=== PATIENT | female | born 1965 | race Caucasian/White ===

== ENCOUNTER 2020-04-28 20:01 | Observation (INO) | payer OTHER ==
--- NOTE | 2020-04-28 20:20 | ED ---
General Adult HPI - General Chief complaint: Weakness Stated complaint: weakness Time Seen by Provider: 04/28/20 20:11 Source: patient, EMS Mode of arrival: EMS Limitations: no limitations - History of Present Illness Initial comments: Dictation was produced using [employer] dictation software. please excuse any grammatical, word or spelling errors. This patient was cared for during a federal and state declared state of emergency secondary to Covid 19 Chief Complaint: 64-year-old female presents with abnormal skin color History of Present Illness: 64-year-old female she has past medical history of CVA. She has chronic aphasia and right-sided weakness from previous stroke. Patient is an unreliable historian. She is at baseline confused and does not have coherent speech patterns. Patient is brought in by EMS according to nurse worsening of report she has had an episode of migraine to the skin and difficulty sitting up. Unable to obtain review of systems secondary to mental status. PHYSICAL EXAM: General Impression: Alert and oriented x2, not in acute distress HEENT: Normocephalic atraumatic, extra-ocular movements intact, pupils equal and reactive to light bilaterally, mucous membranes moist. Cardiovascular: Heart regular rate and rhythm Chest: Able to complete full sentences, no retractions, no tachypnea Abdomen: abdomen soft, non-tender, non-distended, no organomegaly Musculoskeletal: Pulses present and equal in all extremities, no peripheral edema Motor: no focal deficits noted Neurological: CN II-XII grossly intact, incoherent speech, aphasia, confused, no dysarthria, weakness of the right upper or lower extremity Skin: Intact with no visualized rashes Psych: Normal affect and mood ED course: 54-year-old presents with episode of graying of the skin and inability to sit up. Patient at bedside is sitting up she. She does not have any martin skin. Blood pressure is 93/57, rest of vital signs within acceptable limits. Family is currently in the waiting room. We will get more history from the family. Family member at bedside reports that patient had an episode where she did appear martin. Family member tried to check the heart rate and she says it was 20. The time she seemed to be very lethargic. Family reports that he was short lived. He does appear to be at baseline currently. There is concern about patient's medical condition. Laboratory evaluation was obtained. CBC, coag panel, metabolic panel is unremarkable. Cardiac enzymes negative. Computed tomography scan the brain looks baseline. Chest x-ray is nonacute. Disposition options were discussed with family. The would prefer the patient be admitted for medical monitoring. This is a reasonable request considering that patient's daughter is a nurse and observe some being significantly abnormal with low heart rates. Patient be admitted for medical monitoring. Discussed patient case with Dr. Blanc who is willing to accept patients care. EKG interpretation: Ventricular rate 65, normal sinus rhythm, CA interval 140, QRS 74, QTC 426. No CA prolongation, no QTC prolongation, no ST or T-wave changes noted. . Overall, this EKG is unremarkable - Related Data Home Medications Medication Instructions Recorded Confirmed Atorvastatin [Lipitor] 40 mg PO HS 04/28/20 04/28/20 Citalopram Hydrobromide [CeleXA] 20 mg PO DAILY 04/28/20 04/28/20 Clopidogrel [Plavix] 75 mg PO DAILY 04/28/20 04/28/20 Lisinopril [Prinivil] 10 mg PO DAILY 04/28/20 04/28/20 Loratadine [Claritin] 10 mg PO DAILY 04/28/20 04/28/20 Allergies Allergy/AdvReac Type Severity Reaction Status Date / Time Unable to Assess Allergy Verified 04/28/20 20:10 Review of Systems ROS Statement: Those systems with pertinent positive or pertinent negative responses have been documented in the HPI. ROS Other: All systems not noted in ROS Statement are negative. Past Medical History Additional Past Medical History / Comment(s): stroke History of Any Multi-Drug Resistant Organisms: Unobtainable Past Surgical History: Unable to Obtain Past Psychological History: Unable to Obtain Smoking Status: Unknown if ever smoked Past Alcohol Use History: Unable to Obtain Past Drug Use History: Unable to Obtain General Exam Limitations: no limitations Course Vital Signs 04/28/20 04/28/20 04/28/20 20:02 20:56 21:52 Temperature 98.2 F Pulse Rate 78 61 52 L Respiratory 18 19 18 Rate Blood Pressure 93/57 116/72 111/65 O2 Sat by Pulse 98 98 98 Oximetry Medical Decision Making - Lab Data Result diagrams: 04/28/20 20:29 04/28/20 20:29 Lab Results 04/28/20 04/28/20 04/28/20 Range/Units 20:29 20:29 20:29 WBC 8.7 (3.8-10.6) k/uL RBC 4.28 (3.80-5.40) m/uL Hgb 12.5 (11.4-16.0) gm/dL Hct 37.6 (34.0-46.0) % MCV 87.8 (80.0-100.0) fL MCH 29.1 (25.0-35.0) pg MCHC 33.2 (31.0-37.0) g/dL RDW 12.2 (11.5-15.5) % Plt Count 213 (150-450) k/uL Neutrophils % 62 % Lymphocytes % 30 % Monocytes % 5 % Eosinophils % 1 % Basophils % 0 % Neutrophils # 5.4 (1.3-7.7) k/uL Lymphocytes # 2.6 (1.0-4.8) k/uL Monocytes # 0.5 (0-1.0) k/uL Eosinophils # 0.1 (0-0.7) k/uL Basophils # 0.0 (0-0.2) k/uL PT 9.8 (9.0-12.0) sec INR 0.9 (<1.2) APTT 22.1 (22.0-30.0) sec Sodium 139 (137-145) mmol/L Potassium 4.7 (3.5-5.1) mmol/L Chloride 103 (98-107) mmol/L Carbon Dioxide 28 (22-30) mmol/L Anion Gap 8 mmol/L BUN 14 (7-17) mg/dL Creatinine 1.09 H (0.52-1.04) mg/dL Est GFR (CKD-EPI)AfAm 66 (>60 ml/min/1.73 sqM) Est GFR (CKD-EPI)NonAf 57 (>60 ml/min/1.73 sqM) Glucose 107 H (74-99) mg/dL Plasma Lactic Acid Ky (0.7-2.0) mmol/L Calcium 9.0 (8.4-10.2) mg/dL Magnesium 2.0 (1.6-2.3) mg/dL Total Bilirubin 0.5 (0.2-1.3) mg/dL AST 29 (14-36) U/L ALT 24 (4-34) U/L Alkaline Phosphatase 97 (38-126) U/L Troponin I (0.000-0.034) ng/mL Total Protein 6.3 (6.3-8.2) g/dL Albumin 4.1 (3.5-5.0) g/dL 04/28/20 04/28/20 Range/Units 20:29 20:29 WBC (3.8-10.6) k/uL RBC (3.80-5.40) m/uL Hgb (11.4-16.0) gm/dL Hct (34.0-46.0) % MCV (80.0-100.0) fL MCH (25.0-35.0) pg MCHC (31.0-37.0) g/dL RDW (11.5-15.5) % Plt Count (150-450) k/uL Neutrophils % % Lymphocytes % % Monocytes % % Eosinophils % % Basophils % % Neutrophils # (1.3-7.7) k/uL Lymphocytes # (1.0-4.8) k/uL Monocytes # (0-1.0) k/uL Eosinophils # (0-0.7) k/uL Basophils # (0-0.2) k/uL PT (9.0-12.0) sec INR (<1.2) APTT (22.0-30.0) sec Sodium (137-145) mmol/L Potassium (3.5-5.1) mmol/L Chloride (98-107) mmol/L Carbon Dioxide (22-30) mmol/L Anion Gap mmol/L BUN (7-17) mg/dL Creatinine (0.52-1.04) mg/dL Est GFR (CKD-EPI)AfAm (>60 ml/min/1.73 sqM) Est GFR (CKD-EPI)NonAf (>60 ml/min/1.73 sqM) Glucose (74-99) mg/dL Plasma Lactic Acid Ky 1.8 (0.7-2.0) mmol/L Calcium (8.4-10.2) mg/dL Magnesium (1.6-2.3) mg/dL Total Bilirubin (0.2-1.3) mg/dL AST (14-36) U/L ALT (4-34) U/L Alkaline Phosphatase (38-126) U/L Troponin I <0.012 (0.000-0.034) ng/mL Total Protein (6.3-8.2) g/dL Albumin (3.5-5.0) g/dL Disposition Clinical Impression: Syncope Disposition: ADMITTED IP TO THIS HOSP Condition: Fair Referrals: None,Stated [REFERRING] - 1-2 days Decision Time: 22:19
--- NOTE | 2020-04-28 20:35 | XR ---
EXAMINATION TYPE: XR chest 1V portable DATE OF EXAM: 04/28/2020 COMPARISON: NONE HISTORY: Weakness. TECHNIQUE: Single AP portable frontal upright view of the chest is obtained. FINDINGS: There is some mild chronic parenchymal change bilaterally without suspicious focal air spa ce opacity, pleural effusion, or pneumothorax seen. The cardiac silhouette size is within normal kirk its. Multilevel spurring in the thoracic spine is present. IMPRESSION: No acute cardiopulmonary process.
[2020-04-28 20:48] LABS: Basophils % (A) 0 %; Eosinophils # (A) 0.1 k/uL (0-0.7); Eosinophils % (A) 1 %; HCT 37.6 % (34.0-46.0); HGB 12.5 gm/dL (11.4-16.0); Lymphocytes # (A) 2.6 k/uL (1.0-4.8); Lymphocytes % (A) 30 %; MCH 29.1 pg (25.0-35.0); MCHC 33.2 g/dL (31.0-37.0); MCV 87.8 fL (80.0-100.0); Mean Platelet Volume 7.4; Monocytes # (A) 0.5 k/uL (0-1.0); Monocytes % (A) 5 %; Neutrophils # (A) 5.4 k/uL (1.3-7.7); Neutrophils % (A) 62 %; Platelet Count 213 k/uL (150-450); RBC 4.28 m/uL (3.80-5.40); RDW 12.2 % (11.5-15.5); WBC 8.7 k/uL (3.8-10.6)
--- NOTE | 2020-04-28 20:51 | CT ---
EXAMINATION TYPE: CT brain wo con DATE OF EXAM: 04/28/2020 HISTORY: Altered mental status. CT DLP: 1068.4 mGycm. Automated Exposure Control for Dose Reduction was Utilized. TECHNIQUE: CT scan of the head is performed without contrast. COMPARISON: None. FINDINGS: There is no acute intracranial hemorrhage . There is old infarct left MCA distribution in volving frontal and parietal lobes with ex vacuo dilatation left ventricular system and left-sided vo lume loss, subtle 3 mm left-sided shift is present. Bilateral basal ganglia calcifications. The glob es are intact and the visualized sinuses are clear. IMPRESSION: No acute intracranial hemorrhage. Old significant left-sided infarct in the MCA distribu tion with left-sided volume loss and mediastinal shift.
[2020-04-28 21:01] LABS: Albumin 4.1 g/dL (3.5-5.0); Potassium 4.7 mmol/L (3.5-5.1); Total Bilirubin 0.5 mg/dL (0.2-1.3); Total Protein 6.3 g/dL (6.3-8.2)
[2020-04-28 21:29] LABS: INR 0.9 (<1.2); Partial Thromboplastin Time 22.1 sec (22.0-30.0); Prothrombin Time 9.8 sec (9.0-12.0)
[2020-04-28] MEDS ORDERED: NALOXONE 0.4 MG/ML 1 ML VIAL IV PRN (22:19)
[2020-04-28 22:25] LABS: Appearance,Urine Clear (Clear); Bilirubin,Urine Negative (Negative); Blood,Urine Negative (Negative); Color,Urine Yellow; Glucose,Urine (UA) Negative (Negative); Ketones,Urine Negative (Negative); Leukocyte Esterase,Urine Negative (Negative); Nitrite,Urine Negative (Negative); PH, Urine 5.5 (5.0-8.0); Protein,Urine Negative (Negative); Specific Gravity,Urine 1.019 (1.001-1.035)
[2020-04-28] MEDS: SODIUM CHLORIDE 0.9% 1,000 ML IV SCH (22:25)
[2020-04-28] MEDS ORDERED: ACETAMINOPHEN TAB 500 MG TAB PO STA (22:44)
[2020-04-28] MEDS ORDERED: MELATONIN 5 MG TABLET PO PRN (23:44)
[2020-04-28] MEDS ORDERED: ACETAMINOPHEN TAB 325 MG TAB PO PRN (23:44)
[2020-04-28] MEDS: ATORVASTATIN 40 MG TAB PO SCH (23:58)
--- NOTE | 2020-04-29 09:56 | P.HPIM ---
History of Present Illness 64-year-old female she has past medical history of CVA. She has chronic aphasia and right-sided weakness from previous stroke. Patient is an unreliable historian. She is at baseline confused and does not have coherent speech patterns. patient the pulse was found to be low and patient is found to be hypotensive and patient was having patient felt lightheaded because of which patient was brought to ER. Patient here patient is sinus rhythm mild sinus bradycardia with heart rate in 50s. Patient is not on beta ruthy. Her TSH was high T4 is pending. Patient blood pressures in 90s patienthe is on lisinopril Review of Systems REVIEW OF SYSTEMS: CONSTITUTIONAL: No fever, no malaise, no fatigue. HEENT: No recent visual problems or hearing problems. Denied any sore throat. CARDIOVASCULAR: No chest pain, orthopnea, PND, no palpitations. PULMONARY: No shortness of breath, no cough, no hemoptysis. GASTROINTESTINAL: No diarrhea, no nausea, no vomiting, no abdominal pain. NEUROLOGICAL: No headaches, no weakness, no numbness. HEMATOLOGICAL: Denies any bleeding or petechiae. GENITOURINARY: Denies any burning micturition, frequency, or urgency. MUSCULOSKELETAL/RHEUMATOLOGICAL: Denies any joint pain, swelling, or any muscle pain. ENDOCRINE: Denies any polyuria or polydipsia. The rest of the 14-point review of systems is negative. Past Medical History Past Medical History: CVA/TIA, Hyperlipidemia, Hypertension Additional Past Medical History / Comment(s): stroke History of Any Multi-Drug Resistant Organisms: None Reported Past Surgical History: Section Past Anesthesia/Blood Transfusion Reactions: No Reported Reaction Past Psychological History: Depression Smoking Status: Former smoker Past Alcohol Use History: None Reported Past Drug Use History: Marijuana - Past Family History Mother History Unknown: Yes Father History Unknown: Yes Medications and Allergies Home Medications Medication Instructions Recorded Confirmed Type Atorvastatin [Lipitor] 40 mg PO HS 04/28/20 04/28/20 History Citalopram Hydrobromide [CeleXA] 20 mg PO DAILY 04/28/20 04/28/20 History Clopidogrel [Plavix] 75 mg PO DAILY 04/28/20 04/28/20 History Loratadine [Claritin] 10 mg PO DAILY 04/28/20 04/28/20 History Allergies Allergy/AdvReac Type Severity Reaction Status Date / Time No Known Allergies Allergy Verified 04/29/20 03:11 Physical Exam Vitals: Vital Signs Temp Pulse Pulse Resp BP BP Pulse Ox 04/29/20 08:00 98 F 54 L 18 107/71 98 04/29/20 04:00 98.2 F 61 16 90/55 97 04/28/20 23:30 97.5 F L 53 L 16 103/65 98 04/28/20 22:21 63 18 98/59 99 04/28/20 21:52 52 L 18 111/65 98 04/28/20 20:56 61 19 116/72 98 04/28/20 20:02 98.2 F 78 18 93/57 98 Intake and Output 04/28/20 04/29/20 04/29/20 22:59 06:59 14:59 Intake Total 200 Output Total 300 Balance -100 Intake: Intake, IV Titration 200 Amount Sodium Chloride 0.9% 1, 200 000 ml @ 100 mls/hr IV . [facility] Rx#:[id number] Output: Urine 300 Other: Weight 77.111 kg 77.111 kg PHYSICAL EXAMINATION: GENERAL: The patient is alert and oriented x3, not in any acute distress. Well developed, well nourished. HEENT: Pupils are round and equally reacting to light. EOMI. No scleral icterus. No conjunctival pallor. Normocephalic, atraumatic. No pharyngeal erythema. No thyromegaly. CARDIOVASCULAR: S1 and S2 present. No murmurs, rubs, or gallops. PULMONARY: Chest is clear to auscultation, no wheezing or crackles. ABDOMEN: Soft, nontender, nondistended, normoactive bowel sounds. No palpable organomegaly. MUSCULOSKELETAL: No joint swelling or deformity. EXTREMITIES: No cyanosis, clubbing, or pedal edema. NEUROLOGICAL: Gross neurological examination did not reveal any newfocal deficits. she does have speech problems and does have aphasia along with weakness on the right side which is chronic SKIN: No rashes. Results CBC & Chem 7: 04/28/20 20:29 04/28/20 20:29 Labs: Abnormal Lab Results - Last 24 Hours (Table) 04/28/20 04/28/20 Range/Units 20:29 20:29 Creatinine 1.09 H (0.52-1.04) mg/dL Glucose 107 H (74-99) mg/dL TSH 7.710 H (0.465-4.680) mIU/L Thrombosis Risk Factor Assmnt - Choose All That Apply Any of the Below Risk Factors Present?: Yes Each Factor Represents 1 point: Age 41-60 years, Medical pt on bed rest, Obesity (BMI >25) Other congenital or acquired thrombophilia - If yes, enter type in comment: No Thrombosis Risk Factor Assessment Total Risk Factor Score: 3 Thrombosis Risk Factor Assessment Level: Moderate Risk Assessment and Plan Plan: lightheadedness, near syncope: Probably most probably secondary to hypotension. And lisinopril will be discontinued. Patient also has mild sinus bradycardia with heart rate in 50s probably not did not contribute to her lightheadedness. Although her TSH is elevated will obtain a T4. Patient will be discharged on levothyroxine most probably has primary hypothyroidism. Her TSH need to be r epeated again in about a month. -mild acute renal failure: She will on IV fluids until she is discha rged,lisinopril will be discontinued -Hyperlipidemia -CVA with residual weakness on the right side -hypertension patient is presently hypotensive probably doesn't have essential hypertension and this hypotension Related to hypothyroidism as well. Patient will be discharged today. -
--- NOTE | 2020-04-29 09:56 | P.DS ---
Providers Date of admission: 04/28/20 22:19 Attending physician: Jony Blanc Consults: 04/29/20 00:00 Consult Physician Routine Consulting Provider: Memo Capps Consult Reason/Comments: Episodic bradycardia Do you want consulting provider notified?: Yes, Notify in am Primary care physician: Santos Emerson MD Hospital Course: please refer to my HPI for further details. Patient Condition at Discharge: Fair Plan - Discharge Summary Discharge Rx Participant: No New Discharge Prescriptions: New Levothyroxine Sodium [Euthyrox] 75 mcg PO DAILY #30 tablet Continue Loratadine [Claritin] 10 mg PO DAILY Clopidogrel [Plavix] 75 mg PO DAILY Citalopram Hydrobromide [CeleXA] 20 mg PO DAILY Atorvastatin [Lipitor] 40 mg PO HS Discontinued Lisinopril [Prinivil] 10 mg PO DAILY Discharge Medication List Atorvastatin [Lipitor] 40 mg PO HS 04/28/20 [History] Citalopram Hydrobromide [CeleXA] 20 mg PO DAILY 04/28/20 [History] Clopidogrel [Plavix] 75 mg PO DAILY 04/28/20 [History] Loratadine [Claritin] 10 mg PO DAILY 04/28/20 [History] Levothyroxine Sodium [Euthyrox] 75 mcg PO DAILY #30 tablet 04/29/20 [Rx] Follow up Appointment(s)/Referral(s): Santos Emerson MD [Primary Care Provider] - 1 Week Memo Capps MD [STAFF PHYSICIAN] - 1 Week Discharge Disposition: HOME SELF-CARE
[2020-04-29 10:09] LABS: T4, Free (Free Thyroxine) 1.23 ng/dL (0.78-2.19)
--- NOTE | 2020-04-29 10:39 | P.CRDCN ---
History of Present Illness History of present illness: HISTORY OF PRESENTING ILLNESS This is a pleasant 54-year-old female past medical history significant for CVA with right-sided weakness and expressive aphasia, hypertension and dysl ipidemia. She follows commands however is noncommunicative secondary to expressive aphasia. Information is obtained from the medical record and the nursing staff. 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 She was brought to the hospital by her family secondary to an episode of unre sponsiveness. Apparently her heart rate was in the 20s according to her daughter who is a nurse. The patient is seen and examined sitting up in bed in no acute distress. Telemetry tracings throughout the hospitalization have been unremarkable for an arrhythmia. She does have episodes of sinus bradycardia at the lowest noted was 48 bpm. She is asymptomatic at 48 beats. There has been no documented significant bradycardia arrhythmia. DIAGNOSTICS EKG reveals sinus mechanism heart rate of 65. Chest xray negative for an acute cardiopulmonary process. CT of the brain shows no acute intracranial process with evidence of old infarct Laboratory reviewed, CBC unremarkable, sodium 139, potassium 4.7, creatinine 1.09, cardiac enzymes negative 1, TSH 7.71 with a free T4 1 0.23. Current cardiac medications include lisinopril 10 mg daily, atorvastatin 40 mg daily and Plavix 75 mg daily. REVIEW OF SYSTEMS At the time of my exam: CONSTITUTIONAL: Denies fever or chills. CARDIOVASCULAR: Denies chest pain, shortness of breath, orthopnea, PND or palpitations. RESPIRATORY: Denies cough. GASTROINTESTINAL: Denies abdominal pain, diarrhea, constipation, nausea or vomiting. MUSCULOSKELETAL: Denies myalgias. NEUROLOGIC: Denies numbness, tingling or weakness. ENDOCRINE: Denies fatigue, weight change, polydipsia or polyurina. GENITOURINARY: Denies burning, hematuria or urgency with micturation. HEMATOLOGIC: Denies history of anemia or bleeding. PHYSICAL EXAMINATION Blood pressure 107/71 heart rate 54 afebrile and maintaining oxygen saturation on room air. CONSTITUTIONAL: No apparent distress. HEENT: Head is normocephalic. Pupils are equal, round. Sclerae anicteric. Mucous membranes of the mouth are moist. No JVD. No carotid bruit. CHEST EXAMINATION: Lungs are clear to auscultation. No chest wall tenderness is noted on palpation or with deep breathing. HEART EXAMINATION: Regular rate and rhythm. S1, S2 heard. No murmurs, gallops or rub. ABDOMEN: Soft, nontender. Positive bowel sounds. EXTREMITIES: 2+ peripheral pulses, no lower extremity edema and no calf tenderness. NEUROLOGIC EXAMINATION: Patient is awake, alert and oriented x3. ASSESSMENT Sinus bradycardia History of CVA with right-sided weakness and expressive aphasia Hypertension Dyslipidemia PLAN No evidence of bradycardia arrhythmia. Heart rates have been stable. Blood pressures running in the low side and lisinopril discontinued per primary care physician. Recommend outpatient event monitoring. Thank you kindly for this consultation. Nurse Practitioner note has been reviewed, I agree with a documented findings and plan of care. Patient was seen and examined. Past Medical History Past Medical History: CVA/TIA, Hyperlipidemia, Hypertension Additional Past Medical History / Comment(s): stroke History of Any Multi-Drug Resistant Organisms: None Reported Past Surgical History: Section Past Anesthesia/Blood Transfusion Reactions: No Reported Reaction Past Psychological History: Depression Smoking Status: Former smoker Past Alcohol Use History: None Reported Past Drug Use History: Marijuana - Past Family History Mother History Unknown: Yes Father History Unknown: Yes Medications and Allergies Home Medications Medication Instructions Recorded Confirmed Type Atorvastatin [Lipitor] 40 mg PO HS 04/28/20 04/28/20 History Citalopram Hydrobromide [CeleXA] 20 mg PO DAILY 04/28/20 04/28/20 History Clopidogrel [Plavix] 75 mg PO DAILY 04/28/20 04/28/20 History Loratadine [Claritin] 10 mg PO DAILY 04/28/20 04/28/20 History Levothyroxine Sodium [Euthyrox] 75 mcg PO DAILY #30 tablet 04/29/20 Rx Allergies Allergy/AdvReac Type Severity Reaction Status Date / Time No Known Allergies Allergy Verified 04/29/20 03:11 Physical Exam Vitals: Vital Signs Temp Pulse Pulse Resp BP BP Pulse Ox 04/29/20 08:00 98 F 54 L 18 107/71 98 04/29/20 04:00 98.2 F 61 16 90/55 97 04/28/20 23:30 97.5 F L 53 L 16 103/65 98 04/28/20 22:21 63 18 98/59 99 04/28/20 21:52 52 L 18 111/65 98 04/28/20 20:56 61 19 116/72 98 04/28/20 20:02 98.2 F 78 18 93/57 98 Intake and Output 04/28/20 04/29/20 04/29/20 22:59 06:59 14:59 Intake Total 200 Output Total 300 Balance -100 Intake: Intake, IV Titration 200 Amount Sodium Chloride 0.9% 1, 200 000 ml @ 100 mls/hr IV . Q10H [facility] Rx#:[id number] Output: Urine 300 Other: Weight 77.111 kg 77.111 kg Results 04/28/20 20:29 04/28/20 20:29 Cardiac Enzymes 04/28/20 04/28/20 Range/Units 20:29 20:29 AST 29 (14-36) U/L Troponin I <0.012 (0.000-0.034) ng/mL Coagulation 04/28/20 Range/Units 20:29 PT 9.8 (9.0-12.0) sec APTT 22.1 (22.0-30.0) sec CBC 04/28/20 Range/Units 20:29 WBC 8.7 (3.8-10.6) k/uL RBC 4.28 (3.80-5.40) m/uL Hgb 12.5 (11.4-16.0) gm/dL Hct 37.6 (34.0-46.0) % Plt Count 213 (150-450) k/uL Comprehensive Metabolic Panel 04/28/20 Range/Units 20:29 Sodium 139 (137-145) mmol/L Potassium 4.7 (3.5-5.1) mmol/L Chloride 103 (98-107) mmol/L Carbon Dioxide 28 (22-30) mmol/L BUN 14 (7-17) mg/dL Creatinine 1.09 H (0.52-1.04) mg/dL Glucose 107 H (74-99) mg/dL Calcium 9.0 (8.4-10.2) mg/dL AST 29 (14-36) U/L ALT 24 (4-34) U/L Alkaline Phosphatase 97 (38-126) U/L Total Protein 6.3 (6.3-8.2) g/dL Albumin 4.1 (3.5-5.0) g/dL Current Medications Generic Name Dose Route Start Last Admin Trade Name Freq PRN Reason Stop Dose Admin Acetaminophen 650 mg 04/28/20 23:44 Acetaminophen Tab 325 Mg Tab PO Q6HR PRN Fever and/ or Pain Atorvastatin Calcium 40 mg 04/28/20 23:45 04/28/20 23:58 Atorvastatin 40 Mg Tab PO 40 mg HS [facility] Administration Sodium Chloride 1,000 mls @ 100 mls/hr 04/28/20 22:30 04/28/20 22:25 Saline 0.9% IV 20 mls/hr .Q10H [facility] Administration Melatonin 5 mg 04/28/20 23:44 04/28/20 23:57 Melatonin 5 Mg Tablet PO 5 mg HS PRN Administration Insomnia Naloxone HCl 0.2 mg 04/28/20 22:19 Naloxone 0.4 Mg/Ml 1 Ml Vial IV Q2M PRN Opioid Reversal Intake and Output 04/28/20 04/29/20 04/29/20 22:59 06:59 14:59 Intake Total 200 Output Total 300 Balance -100 Intake: Intake, IV Titration 200 Amount Sodium Chloride 0.9% 1, 200 000 ml @ 100 mls/hr IV . Q10H [facility] Rx#:[id number] Output: Urine 300 Other: Weight 77.111 kg 77.111 kg 04/28/20 20:29 04/28/20 20:29
[2020-04-29 15:37] VITALS: RESP 16
[2020-04-29] MEDS: ATORVASTATIN 40 MG TAB PO SCH (20:17)
[2020-04-29 20:51] LABS: Glucose,Whole Blood 177 mg/dL (75-99)
[2020-04-29] MEDS: SODIUM CHLORIDE 0.9% 1,000 ML IV SCH (22:35)
[2020-04-30 06:03] LABS: Glucose,Whole Blood 103 mg/dL (75-99)
[2020-04-30] MEDS: SODIUM CHLORIDE 0.9% 1,000 ML IV SCH (08:29)
[2020-04-30 08:30] VITALS: TEMP 96.7
--- NOTE | 2020-04-30 10:34 | P.PN ---
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 She follows commands however is noncommunicative secondary to expressive aphasia. Patient was initially brought to the hospital by her family secondary to an episode of unresponsiveness. Telemetry tracings throughout this hospitalization have been unremarkable, heart rate at times does dip down into the 40s. She is asymptomatic at this time. Blood pressure this morning 90/50 with a heart rate in the 50s, 99% on room air. TSH 7.7 with a free T4 of 1.2. An echocardiogram with Doppler study has been performed but is yet pending. We will review the patient's echo and recommend an event monitor on discharge. Objective - Vital Signs Vital signs: Vital Signs Temp 96.7 F L 04/30/20 08:25 Pulse 57 L 04/30/20 08:25 Resp 16 04/30/20 08:25 BP 91/51 04/30/20 08:25 Pulse Ox 99 04/30/20 08:25 Intake & Output 04/29/20 04/30/20 04/30/20 18:59 06:59 18:59 Intake Total 1140 100 Output Total 600 300 300 Balance 540 -300 -200 Weight 85 kg Intake: Intake, IV Titration 900 Amount Sodium Chloride 0.9% 1, 900 000 ml @ 100 mls/hr IV . Q10H [facility] Rx#:[id number] Oral 240 100 Output: Urine 600 300 300 Other: Voiding Method Bedside Commode - Exam CONSTITUTIONAL: No apparent distress. HEENT: Head is normocephalic. Pupils are equal, round. Sclerae anicteric. Mucous membranes of the mouth are moist. No JVD. No carotid bruit. CHEST EXAMINATION: Lungs are clear to auscultation. No chest wall tenderness is noted on palpation or with deep breathing. HEART EXAMINATION: Regular rate and rhythm. S1, S2 heard. No murmurs, gallops or rub. ABDOMEN: Soft, nontender. Positive bowel sounds. EXTREMITIES: 2+ peripheral pulses, no lower extremity edema and no calf tenderness. NEUROLOGIC EXAMINATION: Patient is awake, alert and oriented x3. Positive expressive aphasia - Labs CBC & Chem 7: 04/28/20 20:29 04/28/20 20:29 Labs: Abnormal Lab Results - Last 24 Hours (Table) 04/29/20 04/30/20 Range/Units 20:40 06:02 POC Glucose (mg/dL) 177 H 103 H (75-99) mg/dL Assessment and Plan Plan: Assessment and plan #1 sinus bradycardia #2 history of CVA with residual right-sided weakness and expressive aphasia #3 hypertension #4 hyperlipidemia Plan We will review the patient's echocardiogram with Doppler study. On discharge we recommend a 30 day event monitor, we will make her a follow-up appointment after that in the office. DNP note has been reviewed, I agree with a documented findings and plan of care. Patient was seen and examined.
--- NOTE | 2020-04-30 10:43 | P.DS ---
Providers Date of admission: 04/28/20 22:19 Expected date of discharge: 04/30/20 Attending physician: Jony Blanc Consults: 04/29/20 00:00 Consult Physician Routine Consulting Provider: Memo Capps Consult Reason/Comments: Episodic bradycardia Do you want consulting provider notified?: Yes, Notify in am Primary care physician: Santos Emerson MD Hospital Course: Final Diagnoses: Near syncope, secondary to hypotension. Lisinopril discontinued Sinus bradycardia Hypothyroid , probably primary, levothyroxine initiated. Repeat thyroid panel in clinic in 1 month Mild acute renal failure Chronic CVA with residual right-sided weakness, expressive aphasia History of hypertension Obesity Hospital course: This is a 54-year-old female with history of CVA with residual right-sided weakness, expressive aphasia presented with near syncope, hypotension, sinus bradycardia, mild acute renal failure and hypothyroidism. ELIZABETH inhibitor discontinued, received IV fluids and level thyroxine initiated. Significant clinical improvement. Echo pending. Patient will be discharged home today with family in stable condition with guarded prognosis pending final DC recommendations, clearance and event monitor from cardiology. The impression and plan of care has been dictated as directed. : I performed a history and examination of this patient, discussed the same with the dictator. I agree with the dictator's note ,documented as a scribe. Any additional findings or plans will be noted. Patient Condition at Discharge: Stable Plan - Discharge Summary Discharge Rx Participant: No New Discharge Prescriptions: New Levothyroxine Sodium [Euthyrox] 75 mcg PO DAILY #30 tablet Continue Loratadine [Claritin] 10 mg PO DAILY Clopidogrel [Plavix] 75 mg PO DAILY Citalopram Hydrobromide [CeleXA] 20 mg PO DAILY Atorvastatin [Lipitor] 40 mg PO HS Discontinued Lisinopril [Prinivil] 10 mg PO DAILY Discharge Medication List Atorvastatin [Lipitor] 40 mg PO HS 04/28/20 [History] Citalopram Hydrobromide [CeleXA] 20 mg PO DAILY 04/28/20 [History] Clopidogrel [Plavix] 75 mg PO DAILY 04/28/20 [History] Loratadine [Claritin] 10 mg PO DAILY 04/28/20 [History] Levothyroxine Sodium [Euthyrox] 75 mcg PO DAILY #30 tablet 04/29/20 [Rx] Follow up Appointment(s)/Referral(s): Santos Emerson MD [Primary Care Provider] - 1 Week Memo Capps MD [STAFF PHYSICIAN] - 1 Week (Please call the office tomorrow for a 14-day event monitor. ) Patient Instructions/Handouts: Hypothyroidism (DC) Activity/Diet/Wound Care/Special Instructions: Pending final DC recommendations ,clearance and Event monitor as per cardiology. Check TSH level in one week Set up event monitor outpatient Discharge Disposition: HOME SELF-CARE
[2020-04-30 11:21] LABS: African American GFR (CKD) >90 (>60 ml/min/1.73 sqM); Anion Gap 3 mmol/L; Blood Urea Nitrogen 16 mg/dL (7-17); Calcium 8.3 mg/dL (8.4-10.2); Carbon Dioxide 28 mmol/L (22-30); Chloride 108 mmol/L (98-107); Glucose 77 mg/dL (74-99); Non-African American GFR(CKD) 80 (>60 ml/min/1.73 sqM); Potassium 4.1 mmol/L (3.5-5.1); Sodium 139 mmol/L (137-145)
[2020-04-30 11:36] VITALS: BP 115/64; PULSE 49
--- NOTE | 2020-04-30 12:00 | ECHOF ---
Referral Reason:bradycardia, poss near syncope MEASUREMENTS -------- HEIGHT: 170.2 cm WEIGHT: 84.8 kg BP: IVSd: 0.7 cm (0.6 - 1.1) LVIDd: 4.4 cm (3.9 - 5.3) LVPWd: 0.8 cm (0.6 - 1.1) EDV(Teich): 87 ml IVSs: 1.6 cm LVIDs: 2.1 cm LVPWs: 1.7 cm %IVS Thck: 119 % ESV(Teich): 15 ml EF(Teich): 83 % %FS: 51 % SV(Teich): 72 ml RVIDd: 2.3 cm (< 3.3) Ao Diam: 2.7 cm (2.0 - 3.7) LA Diam: 2.8 cm (2.7 - 3.8) AV Cusp: 1.8 cm (1.5 - 2.6) EPSS: 1.3 cm MV E Saul: 0.98 m/s MV DecT: 190 ms MV Dec Ross: 5.1 m/s MV A Saul: 0.74 m/s MV E/A Ratio: 1.32 MV PHT: 55 ms MR Vmax: 1.28 m/s MR maxP.52 mmHg AV Vmax: 1.39 m/s AV maxP.70 mmHg TR Vmax: 2.25 m/s TR maxP.25 mmHg RAP: 5.00 mmHg RVSP: 25.25 mmHg MV EF SLOPE: 126.28 mm/s (70 - 150) MV EXCURSION: 12.49 mm (> 18.000) FINDINGS -------- This was a technically difficult study with suboptimal views. The left ventricular size is normal. Left ventricular wall thickness is normal. Overall left vent ricular systolic function is normal with, an EF between 55 - 60 %. The right ventricle is normal in size. The left atrial size is normal. The right atrial size is normal. 5.0mg of Lumason was utilized for enhancement of images The aortic valve was not well visualized. The mitral valve is normal. There is trace mitral regurgitation. The tricuspid valve appears structurally normal. Trace tricuspid regurgitation present. Right casie tricular systolic pressure is normal at < 35 mmHg. The pulmonic valve was not well visualized. The aortic root size is normal. IVC Not well visulized. There is no pericardial effusion. CONCLUSIONS -------- 1. The left ventricular size is normal. 2. Left ventricular wall thickness is normal. 3. Overall left ventricular systolic function is normal with, an EF between 55 - 60 %. 4. There is trace mitral regurgitation. 5. Trace tricuspid regurgitation present. 6. There is no pericardial effusion. [employer]ER: Monique Stoddard RDCS
[2020-04-30 12:02] LABS: Glucose,Whole Blood 85 mg/dL (75-99)
[2020-04-30] MEDS ORDERED: CLOPIDOGREL 75 MG TAB PO SCH (13:00)
[2020-04-30] MEDS ORDERED: CITALOPRAM HYDROBROMIDE 20 MG TAB PO SCH (13:00)
[2020-04-30] MEDS ORDERED: LORATADINE 10 MG TAB PO SCH (13:00)
== END 2020-04-30 14:11 | disposition home or self-care (01) ==
LOC: EEVIPCON 20:01 → EC 20:01 → 3SCARD 22:19
PROVIDERS: ADMIT Family Medicine; ATTEND Family Medicine
DX: I95.9 Hypotension, unspecified (principal); R00.1 Bradycardia, unspecified; N17.9 Acute kidney failure, unspecified; E03.9 Hypothyroidism, unspecified; I69.351 Hemiplegia and hemiparesis following cerebral infarction affecting right dominant side; I69.320 Aphasia following cerebral infarction; R41.0 Disorientation, unspecified; I10 Essential (primary) hypertension; E78.5 Hyperlipidemia, unspecified; F32.9 Major depressive disorder, single episode, unspecified; E66.9 Obesity, unspecified; Z68.29 Body mass index [BMI] 29.0-29.9, adult; Z79.02 Long term (current) use of antithrombotics/antiplatelets; Z79.899 Other long term (current) drug therapy; Z87.891 Personal history of nicotine dependence; Z98.891 History of uterine scar from previous surgery
CPT/HCPCS: 99285; 36415; 93005; 84439; 80053; 80048; 84443; 83605; 83735; 84484; 85025; 85610; 85730; 81003; 71045; 70450; G0378 ×3; C8929; Q9950; 93306

== ENCOUNTER → 2020-07-30 | Outpatient (CLI) | payer OTHER ==
[2020-07-31 01:36] LABS: African American GFR (CKD) 94.9 (60.0-200.0); Non-African American GFR(CKD) 81.8 (60.0-200.0)
== END | disposition home or self-care (01) ==
LOC: LABWHC1 16:06
PROVIDERS: ATTEND Family Medicine
DX: E03.9 Hypothyroidism, unspecified (principal); I63.232 Cerebral infarction due to unspecified occlusion or stenosis of left carotid arteries
CPT/HCPCS: 36415; 82565; 84443; 84481; 84520

== ENCOUNTER → 2020-07-30 | Outpatient (CLI) | payer OTHER ==
--- NOTE | 2020-07-30 17:10 | CT ---
EXAMINATION TYPE: CT angio neck DATE OF EXAM: 07/30/2020 COMPARISON: None HISTORY: 55-year-old female Left sided carotid obstruction, history of stroke. TECHNIQUE: Contiguous axial scanning of the neck performed with IV Contrast, patient injected with 65 ml mL of Isovue 370. Coronal/sagittal MIP reconstructions performed. 3-D reconstructions generated on a dedicated independent workstation. CT DLP: 367.7 mGycm Automated exposure control for dose reduction was used. FINDINGS: Conventional arch vessel branching anatomy. Left vertebral artery is slightly more dominant but both vessels are patent throughout the course. Right common and internal carotid arteries are widely patent. Left common carotid artery is patent. At the scattered plaque and calcification resulting in proximal left ICA occlusion just beyond the le clem of the carotid bulb. The left bifurcation is located approximately 3 cm below the angle of the ma ndible. There is some reconstitution of flow within the cavernous segment of the intracranial left ICA probab ly from collateral flow from the anterior communicating artery. Anterior bridging endplate spondylosis lower cervical spine. IMPRESSION: 1. PROXIMAL LEFT ICA OCCLUSION JUST ABOVE THE LEVEL OF THE CAROTID BULB. RECONSTITUTION AT THE CAVERN OUS SEGMENT INTRACRANIAL LEFT ICA LIKELY FROM COLLATERAL FLOW FROM THE ANTERIOR COMMUNICATING ARTERY. 2. WIDELY PATENT RIGHT CAROTID ARTERIES. 3. SLIGHTLY DOMINANT LEFT VERTEBRAL ARTERY. BOTH VERTEBRAL ARTERIES ARE PATENT.
== END | disposition home or self-care (01) ==
LOC: RADCTMAIN 15:02
PROVIDERS: ATTEND Internal Medicine Interventional Cardiology
DX: I63.232 Cerebral infarction due to unspecified occlusion or stenosis of left carotid arteries (principal)
CPT/HCPCS: 70498; Q9967

== ENCOUNTER 2020-10-02 11:18 | Emergency (ER) | payer OTHER ==
--- NOTE | 2020-10-02 12:10 | ED ---
Weakness HPI - General Chief complaint: Weakness Stated complaint: fatigue,weakness Time Seen by Provider: 10/02/20 12:05 Source: patient, family Mode of arrival: wheelchair Limitations: no limitations - History of Present Illness Initial comments: 56-year-old female with history of CVA and right-sided paralysis with aphasia presents to emergency department with chief complaint of weakness. Daughter is also present in the room to answer additional questions. States the patient was initially admitted for inpatient therapy following the CVA followed by several months of outpatient therapy. States now she does therapy in her house daily basis. However, the patient has been feeling more weak over the last week and refusing to perform a typical exercises. Daughter states the patient is otherwise taken her medication as prescribed. She does report decreased appetite but states the patient is otherwise having bowel movements and urinating at baseline. She denies any fevers at home. Patient has limited speech due to aphasia. Daughter states the patient is calm fasting as scheduled to have a liver panel obtained which she brought the prescription to the ED. daughter states patient is typically bradycardic with HR in the low 40s upper 3 0s. - Related Data Home Medications Medication Instructions Recorded Confirmed Atorvastatin [Lipitor] 40 mg PO HS 04/28/20 04/28/20 Citalopram Hydrobromide [CeleXA] 20 mg PO DAILY 04/28/20 04/28/20 Clopidogrel [Plavix] 75 mg PO DAILY 04/28/20 04/28/20 Loratadine [Claritin] 10 mg PO DAILY 04/28/20 04/28/20 Previous Rx's Medication Instructions Recorded Levothyroxine Sodium [Euthyrox] 75 mcg PO DAILY #30 tablet 04/29/20 Allergies Allergy/AdvReac Type Severity Reaction Status Date / Time No Known Allergies Allergy Verified 10/02/20 11:31 Review of Systems ROS Statement: Those systems with pertinent positive or pertinent negative responses have been documented in the HPI. ROS Other: All systems not noted in ROS Statement are negative. Past Medical History Past Medical History: CVA/TIA, Hyperlipidemia, Hypertension Additional Past Medical History / Comment(s): stroke History of Any Multi-Drug Resistant Organisms: None Reported Past Surgical History: Section Past Anesthesia/Blood Transfusion Reactions: No Reported Reaction Past Psychological History: Depression Smoking Status: Former smoker Past Alcohol Use History: None Reported Past Drug Use History: Marijuana - Past Family History Mother History Unknown: Yes Father History Unknown: Yes General Exam Limitations: language barrier General appearance: alert, in no apparent distress Head exam: Present: atraumatic, normocephalic, normal inspection Eye exam: Present: normal appearance, PERRL, EOMI Pupils: Present: normal accommodation ENT exam: Present: normal exam, normal oropharynx, mucous membranes moist, TM's normal bilaterally, normal external ear exam Neck exam: Present: normal inspection, full ROM. Absent: tenderness Respiratory exam: Present: normal lung sounds bilaterally. Absent: respiratory distress Cardiovascular Exam: Present: regular rate, normal rhythm, normal heart sounds GI/Abdominal exam: Present: soft. Absent: distended, tenderness, guarding, rebound Extremities exam: Present: normal inspection, normal capillary refill, other (Palpable DP and PT bilaterally.). Absent: full ROM (Limited range of motion in the right upper and lower extremity), pedal edema, joint swelling, calf tenderness Back exam: Present: normal inspection, full ROM. Absent: tenderness Neurological exam: Present: alert, normal gait Expanded Neurological exam: Present: expressive aphasia Psychiatric exam: Present: normal affect, normal mood Skin exam: Present: warm, dry, intact, normal color Course Vital Signs 10/02/20 10/02/20 11:31 14:25 Temperature 98.2 F Pulse Rate 48 L 48 L Respiratory 16 16 Rate Blood Pressure 104/71 124/72 O2 Sat by Pulse 97 98 Oximetry EKG Findings - EKG Comments: EKG Findings:: Sinus bradycardia. Ventricular rate 44, FL 144, QRS 72, QTC 413. Medical Decision Making - Medical Decision Making 55-year-old female with history of CVA and right-sided paralysis at baseline along with aphasia presents to emergency Department with a chief complaint of weakness. On physical examination, patient is resting comfortable in bed. Patient has limited his verbal speech due to the stroke. No new focal neurological findings. Daughter was concerned for increased fatigue with her exercises over the last week. CBC CMP unremarkable. Lipid profile obtained and unremarkable the request of the daughter. Thyroid levels within normal limits. UA showed no signs of urinary tract infection. Chest x-ray is unremarkable. EKG showing sinus bradycardia although this appears to the patient's baseline. Daughter states they will follow up with the primary care physician. Return parameters were thoroughly discussed with Dr. rosa roblero. Case discussed with Dr. Mccann. - Lab Data Result diagrams: 10/02/20 12:17 10/02/20 12:17 Lab Results 10/02/20 10/02/20 10/02/20 Range/Units 12:01 12:17 12:17 WBC 6.2 (3.8-10.6) k/uL RBC 4.58 (3.80-5.40) m/uL Hgb 13.6 (11.4-16.0) gm/dL Hct 39.9 (34.0-46.0) % MCV 87.0 (80.0-100.0) fL MCH 29.6 (25.0-35.0) pg MCHC 34.1 (31.0-37.0) g/dL RDW 12.2 (11.5-15.5) % Plt Count 184 (150-450) k/uL MPV 7.6 Neutrophils % 60 % Lymphocytes % 32 % Monocytes % 5 % Eosinophils % 1 % Basophils % 1 % Neutrophils # 3.7 (1.3-7.7) k/uL Lymphocytes # 2.0 (1.0-4.8) k/uL Monocytes # 0.3 (0-1.0) k/uL Eosinophils # 0.1 (0-0.7) k/uL Basophils # 0.0 (0-0.2) k/uL PT 10.1 (9.0-12.0) sec INR 0.9 (<1.2) APTT 24.7 (22.0-30.0) sec Sodium (137-145) mmol/L Potassium (3.5-5.1) mmol/L Chloride (98-107) mmol/L Carbon Dioxide (22-30) mmol/L Anion Gap mmol/L BUN (7-17) mg/dL Creatinine (0.52-1.04) mg/dL Est GFR (CKD-EPI)AfAm (>60 ml/min/1.73 sqM) Est GFR (CKD-EPI)NonAf (>60 ml/min/1.73 sqM) Glucose (74-99) mg/dL Calcium (8.4-10.2) mg/dL Total Bilirubin (0.2-1.3) mg/dL AST (14-36) U/L ALT (4-34) U/L Alkaline Phosphatase (38-126) U/L Troponin I (0.000-0.034) ng/mL Total Protein (6.3-8.2) g/dL Albumin (3.5-5.0) g/dL Triglycerides 103 (<150) mg/dL Cholesterol 147 (<200) mg/dL LDL Cholesterol, Calc 63 (0-99) mg/dL HDL Cholesterol 63 H (40-60) mg/dL TSH 0.876 (0.465-4.680) mIU/L Urine Color Urine Appearance (Clear) Urine pH (5.0-8.0) Ur Specific [place] (1.001-1.035) Urine Protein (Negative) Urine Glucose (UA) (Negative) Urine Ketones (Negative) Urine Blood (Negative) Urine Nitrite (Negative) Urine Bilirubin (Negative) Urine Urobilinogen (<2.0) mg/dL Ur Leukocyte Esterase (Negative) Urine RBC (0-5) /hpf Urine WBC (0-5) /hpf Ur Squamous Epith Cells (0-4) /hpf Urine Mucus (None) /hpf 10/02/20 10/02/20 10/02/20 Range/Units 12:17 12:17 12:41 WBC (3.8-10.6) k/uL RBC (3.80-5.40) m/uL Hgb (11.4-16.0) gm/dL Hct (34.0-46.0) % MCV (80.0-100.0) fL MCH (25.0-35.0) pg MCHC (31.0-37.0) g/dL RDW (11.5-15.5) % Plt Count (150-450) k/uL MPV Neutrophils % % Lymphocytes % % Monocytes % % Eosinophils % % Basophils % % Neutrophils # (1.3-7.7) k/uL Lymphocytes # (1.0-4.8) k/uL Monocytes # (0-1.0) k/uL Eosinophils # (0-0.7) k/uL Basophils # (0-0.2) k/uL PT (9.0-12.0) sec INR (<1.2) APTT (22.0-30.0) sec Sodium 138 (137-145) mmol/L Potassium 4.3 (3.5-5.1) mmol/L Chloride 105 (98-107) mmol/L Carbon Dioxide 27 (22-30) mmol/L Anion Gap 6 mmol/L BUN 17 (7-17) mg/dL Creatinine 0.78 (0.52-1.04) mg/dL Est GFR (CKD-EPI)AfAm >90 (>60 ml/min/1.73 sqM) Est GFR (CKD-EPI)NonAf 85 (>60 ml/min/1.73 sqM) Glucose 88 (74-99) mg/dL Calcium 9.2 (8.4-10.2) mg/dL Total Bilirubin 0.8 (0.2-1.3) mg/dL AST 25 (14-36) U/L ALT 15 (4-34) U/L Alkaline Phosphatase 89 (38-126) U/L Troponin I <0.012 (0.000-0.034) ng/mL Total Protein 6.6 (6.3-8.2) g/dL Albumin 4.0 (3.5-5.0) g/dL Triglycerides (<150) mg/dL Cholesterol (<200) mg/dL LDL Cholesterol, Calc (0-99) mg/dL HDL Cholesterol (40-60) mg/dL TSH (0.465-4.680) mIU/L Urine Color Yellow Urine Appearance Cloudy H (Clear) Urine pH 5.5 (5.0-8.0) Ur Specific [place] 1.020 (1.001-1.035) Urine Protein Negative (Negative) Urine Glucose (UA) Negative (Negative) Urine Ketones Negative (Negative) Urine Blood Negative (Negative) Urine Nitrite Negative (Negative) Urine Bilirubin Negative (Negative) Urine Urobilinogen <2.0 (<2.0) mg/dL Ur Leukocyte Esterase Negative (Negative) Urine RBC 2 (0-5) /hpf Urine WBC <1 (0-5) /hpf Ur Squamous Epith Cells <1 (0-4) /hpf Urine Mucus Rare H (None) /hpf Disposition Clinical Impression: Fatigue Disposition: HOME SELF-CARE Condition: Stable Instructions (If sedation given, give patient instructions): Fatigue (ED) Additional Instructions: Follow with the primary care physician. Return to emergency department if symptoms worsen. Is patient prescribed a controlled substance at d/c from ED?: No Referrals: Santos Emerson MD [Primary Care Provider] - 1-2 days Time of Disposition: 15:00
[2020-10-02 12:36] LABS: Basophils % (A) 1 %; Eosinophils # (A) 0.1 k/uL (0-0.7); Eosinophils % (A) 1 %; HCT 39.9 % (34.0-46.0); HGB 13.6 gm/dL (11.4-16.0); Lymphocytes % (A) 32 %; MCH 29.6 pg (25.0-35.0); MCHC 34.1 g/dL (31.0-37.0); Mean Platelet Volume 7.6; Monocytes # (A) 0.3 k/uL (0-1.0); Monocytes % (A) 5 %; Neutrophils # (A) 3.7 k/uL (1.3-7.7); Neutrophils % (A) 60 %; Platelet Count 184 k/uL (150-450); RBC 4.58 m/uL (3.80-5.40); RDW 12.2 % (11.5-15.5); WBC 6.2 k/uL (3.8-10.6)
[2020-10-02 12:45] LABS: ALT 15 U/L (4-34); AST 25 U/L (14-36); African American GFR (CKD) >90 (>60 ml/min/1.73 sqM); Alkaline Phosphatase 89 U/L (38-126); Anion Gap 6 mmol/L; Blood Urea Nitrogen 17 mg/dL (7-17); Calcium 9.2 mg/dL (8.4-10.2); Carbon Dioxide 27 mmol/L (22-30); Chloride 105 mmol/L (98-107); Glucose 88 mg/dL (74-99); Non-African American GFR(CKD) 85 (>60 ml/min/1.73 sqM); Potassium 4.3 mmol/L (3.5-5.1); Sodium 138 mmol/L (137-145); Total Bilirubin 0.8 mg/dL (0.2-1.3); Total Protein 6.6 g/dL (6.3-8.2)
--- NOTE | 2020-10-02 13:05 | XR ---
EXAMINATION TYPE: XR chest 2V DATE OF EXAM: 10/02/2020 COMPARISON: 04/28/2020 TECHNIQUE: PA and lateral views submitted. HISTORY: Weakness FINDINGS: The lungs are clear and there is no pneumothorax, pleural effusion, or focal pneumonia. Arthropathy of the shoulders. Hypertrophic and degenerative changes spine. The heart is prominent. No overt fail ure. IMPRESSION: 1. No acute process.
[2020-10-02 13:16] LABS: INR 0.9 (<1.2); Partial Thromboplastin Time 24.7 sec (22.0-30.0); Prothrombin Time 10.1 sec (9.0-12.0)
[2020-10-02 13:20] LABS: Appearance,Urine Cloudy (Clear); Bilirubin,Urine Negative (Negative); Blood,Urine Negative (Negative); Color,Urine Yellow; Glucose,Urine (UA) Negative (Negative); Ketones,Urine Negative (Negative); Leukocyte Esterase,Urine Negative (Negative); Mucus,Urine Rare /hpf; Nitrite,Urine Negative (Negative); PH, Urine 5.5 (5.0-8.0); Protein,Urine Negative (Negative); RBC,Urine 2 /hpf (0-5); Squamous Epithelial Cell,Urine <1 /hpf (0-4); Urobilinogen,Urine <2.0 mg/dL (<2.0); WBC,Urine <1 /hpf (0-5)
[2020-10-02 15:32] VITALS: BP 115/62; PULSE 40; RESP 18; TEMP 97.5
== END 2020-10-02 15:41 | disposition home or self-care (01) ==
LOC: EC 11:18
DX: R53.83 Other fatigue (principal); R47.01 Aphasia; E78.5 Hyperlipidemia, unspecified; I10 Essential (primary) hypertension; F32.9 Major depressive disorder, single episode, unspecified; Z79.899 Other long term (current) drug therapy; Z79.02 Long term (current) use of antithrombotics/antiplatelets; Z87.891 Personal history of nicotine dependence; Z86.73 Personal history of transient ischemic attack (TIA), and cerebral infarction without residual deficits
CPT/HCPCS: 36415; 71046; 80053; 80061; 81001; 84443; 84484; 85025; 85610; 85730; 93005; 99285

== ENCOUNTER → 2021-04-24 | Outpatient (CLI) | payer OTHER ==
--- NOTE | 2021-04-24 13:37 | XR ---
EXAMINATION TYPE: XR shoulder complete RT DATE OF EXAM: 04/24/2021 COMPARISON: NONE HISTORY: Pain TECHNIQUE: Three views are submitted. FINDINGS: The osseous structures are intact. There is no acute fracture or dislocation. AC joint arthropathy. Lung is clear. Mild diffuse osteopenia. IMPRESSION: 1. AC joint arthropathy.
[2021-04-24 20:03] LABS: HCT 39.8 % (37.2-46.3); MCH 29.4 pg (27.0-32.0); MCHC 32.7 g/dL (32.0-37.0); Mean Platelet Volume 11.2 fL (9.5-12.2); Platelet Count 223 X 10*3/uL (140-440); RBC 4.42 X 10*6/uL (4.10-5.20); RDW 12.4 % (11.5-14.5); WBC 7.89 X 10*3/uL (4.50-10.00)
[2021-04-24 20:51] LABS: Hemoglobin A1C 5.2 % (4.0-6.0)
[2021-04-25 17:42] LABS: African American GFR (CKD) 94.9 (60.0-200.0); Albumin 4.2 g/dL (3.80-4.90); Anion Gap 9.3 mmol/L (4.00-12.00); BUN/Creat Ratio 16.25 Ratio (12.00-20.00); Calcium 9.2 mg/dL (8.7-10.3); Carbon Dioxide 25.7 mmol/L (21.6-31.8); Globulin 2.1 g/dL (1.6-3.3); Non-African American GFR(CKD) 81.8 (60.0-200.0); Potassium 4.7 mmol/L (3.5-5.5); Total Bilirubin 0.7 mg/dL (0.2-1.2); Total Protein 6.3 g/dL (6.2-8.2)
== END | disposition home or self-care (01) ==
LOC: LABWHC1 12:39
PROVIDERS: ATTEND Physician Assistant
DX: E66.9 Obesity, unspecified (principal); E78.5 Hyperlipidemia, unspecified; I10 Essential (primary) hypertension; E03.9 Hypothyroidism, unspecified; R73.01 Impaired fasting glucose; M12.811 Other specific arthropathies, not elsewhere classified, right shoulder
CPT/HCPCS: 36415; 80053; 83036; 84443; 85027

== ENCOUNTER → 2021-05-07 | Outpatient (CLI) | payer OTHER ==
[2021-05-08 17:34] LABS: Chol/HDL Ratio 2.32 Ratio; HDL Cholesterol 66.4 mg/dL (40.00-60.00); LDL Cholesterol,Calculated 62.2 mg/dL (0.0-131.0); VLDL Calculation 25.4 mg/dL (5.00-40.00)
== END | disposition home or self-care (01) ==
LOC: LABWHC1 10:21
PROVIDERS: ATTEND Physician Assistant
DX: I10 Essential (primary) hypertension (principal); E66.9 Obesity, unspecified; E78.5 Hyperlipidemia, unspecified; E03.9 Hypothyroidism, unspecified; R73.01 Impaired fasting glucose
CPT/HCPCS: 36415; 80061

== ENCOUNTER → 2021-07-24 | Outpatient (CLI) | payer OTHER ==
[2021-07-24 21:10] LABS: Chol/HDL Ratio 2.32 Ratio; LDL Cholesterol,Calculated 58.4 mg/dL (0.0-131.0)
[2021-07-24 21:21] LABS: ALT 14 U/L (8-44); AST 23 U/L (13-35)
== END | disposition home or self-care (01) ==
LOC: LABWHC1 11:53
PROVIDERS: ATTEND Internal Medicine Interventional Cardiology
DX: E78.00 Pure hypercholesterolemia, unspecified (principal)
CPT/HCPCS: 36415; 80061; 84450; 84460

== ENCOUNTER → 2021-10-14 | Outpatient (CLI) | payer OTHER ==
[2021-10-14 18:26] LABS: HCT 39.7 % (37.2-46.3); HGB 12.7 g/dL (12.0-15.0); MCH 29.2 pg (27.0-32.0); MCV 91.3 fL (80.0-97.0); Mean Platelet Volume 10.8 fL (9.5-12.2); NRBC Per 100 WBC 0 /100 WBCS (0.0-0.0); Platelet Count 220 X 10*3/uL (140-440); RBC 4.35 X 10*6/uL (4.10-5.20); RDW 12.4 % (11.5-14.5); WBC 7.21 X 10*3/uL (4.50-10.00)
[2021-10-14 18:42] LABS: ALT 15 U/L (8-44); AST 18 U/L (13-35); African American GFR (CKD) 86.3 (60.0-200.0); Albumin 4.1 g/dL (3.8-4.9); Albumin/Globulin Ratio 1.85 (1.60-3.17); Alkaline Phosphatase 112 U/L (41-126); BUN/Creat Ratio 15.12 Ratio (12.00-20.00); Calcium 9.1 mg/dL (8.7-10.3); Carbon Dioxide 24.6 mmol/L (20.0-27.5); Chloride 105 mmol/L (96-109); Globulin 2.2 g/dL (1.6-3.3); Glucose 87 mg/dL (70-110); Non-African American GFR(CKD) 74.5 (60.0-200.0); Potassium 4.2 mmol/L (3.5-5.5); Sodium 141 mmol/L (135-145); Total Protein 6.2 g/dL (6.2-8.2)
[2021-10-14 18:43] LABS: Chol/HDL Ratio 1.88 Ratio; LDL Cholesterol,Calculated 39.7 mg/dL (0.0-131.0)
== END | disposition home or self-care (01) ==
LOC: LABWHC1 12:38
PROVIDERS: ATTEND Physician Assistant Medical
DX: I10 Essential (primary) hypertension (principal); I67.9 Cerebrovascular disease, unspecified; R73.01 Impaired fasting glucose
CPT/HCPCS: 36415; 80053; 80061; 83036; 84443; 85027

== ENCOUNTER 2022-07-24 15:21 | Emergency (ER) | payer MEDICARE, OTHER ==
[2022-07-24 15:42] VITALS: BP 108/71; PULSE 50; RESP 18; TEMP 98
[2022-07-24] MEDS ORDERED: DIPH,PERTUS(ACELL)TETVAC-LF 0.5 ML VIAL IM ONE (16:06)
--- NOTE | 2022-07-24 16:29 | CT ---
EXAMINATION TYPE: CT brain cspine wo con, CT facial bones wo con CT DLP: combined DLP 979.8 mGycm, Automated exposure control for dose reduction was used. DATE OF EXAM: 07/24/2022 4:20 PM COMPARISON: 04/28/2020 CT brain. CLINICAL INDICATION:Female, 57 years old with history of Trauma; fall TECHNIQUE: Brain: Multiple axial CT images of the brain were obtained without IV contrast. Cspine: Axial CT images from the skull base to the inferior aspect of T2 we obtained without intraven ous contrast. Coronal and sagittal reformatted images were also reviewed. Facial: Axial CT images of the shoulder structures with sagittal and coronal reformats. FINDINGS: Brain: Extra-axial spaces: No abnormal extra-axial fluid collections. Ventricular system: Within normal limits Cerebral parenchyma: Remote left MCA territory injury with encephalomalacia. No acute intraparenchyma l hemorrhage or mass effect. The martin-white junction is well differentiated. Cerebellum: Unremarkable. Mass effect: No evidence of midline shift. Intracranial vasculature: unremarkable Soft tissues: Normal. Calvarium/osseous structures: No depressed skull fracture. Paranasal sinuses and mastoid air cells: Mild scattered mucosal thickening and or secretions. Visualized orbits: Orbital contents are intact. Cervical spine: Fracture: None. Osseous structures: Multilevel degenerative disc disease changes with endplate spurring and disc oste ophyte complex's. Vertebral alignment: Within normal limits. Spinal canal/Neural Foramina: No evidence of significant spinal canal narrowing. No evidence for sign ificant neural foraminal stenosis. Neck soft tissues: Prevertebral soft tissues are within normal limits. Other: The airway is patent. The lung apices are clear. Facial: Mucosal thickening of the right maxillary sinus without definitive fracture line identified. Findings could represent paranasal sinus disease given lack of layering fluid. There is no evidence of fracture, subluxation, dislocation, or significant soft tissue swelling. The orbital contents are unremarkable.The temporal-mandibular joints appear symmetric. IMPRESSION: 1. No acute intracranial process. 2. Remote left MCA territory injury with encephalomalacia. 3. No evidence of cervical spine fracture. 4. Mild multilevel degenerative disc disease. 5. No evidence of facial bone fracture.
--- NOTE | 2022-07-24 17:10 | ED ---
Head Injury HPI - General Chief complaint: Head Injury Stated complaint: facial injury Time Seen by Provider: 07/24/22 16:00 Source: patient, family, RN notes reviewed Mode of arrival: ambulatory Limitations: no limitations - History of Present Illness Initial comments: 13-year-old female with a history of CVA with right-sided weakness who was a poor historian was brought in by family today after finding out that she was found on the floor this morning. Unclear what she hit how she ended up on the floor. He did have evidence of a 4 head injury with erythema a small abrasion. No new findings of weakness to her extremities. No other injuries reported again the patient is a poor historian and is unclear what happened exactly MD Complaint: head injury - Related Data Home Medications Medication Instructions Recorded Confirmed Atorvastatin [Lipitor] 40 mg PO HS 04/28/20 04/28/20 Citalopram Hydrobromide [CeleXA] 20 mg PO DAILY 04/28/20 04/28/20 Clopidogrel [Plavix] 75 mg PO DAILY 04/28/20 04/28/20 Loratadine [Claritin] 10 mg PO DAILY 04/28/20 04/28/20 Previous Rx's Medication Instructions Recorded Levothyroxine Sodium [Euthyrox] 75 mcg PO DAILY #30 tablet 04/29/20 Sulfamethox-Tmp 800-160Mg [Bactrim 2 each PO Q12HR #28 tab 07/24/22 DS 800-160 mg] Allergies/Adverse reactions: Allergies Allergy/AdvReac Type Severity Reaction Status Date / Time No Known Allergies Allergy Verified 10/02/20 11:31 Review of Systems ROS Statement: Those systems with pertinent positive or pertinent negative responses have been documented in the HPI. ROS Other: All systems not noted in ROS Statement are negative. Past Medical History Past Medical History: CVA/TIA, Hyperlipidemia, Hypertension Additional Past Medical History / Comment(s): stroke History of Any Multi-Drug Resistant Organisms: None Reported Past Surgical History: Section Past Anesthesia/Blood Transfusion Reactions: No Reported Reaction Past Psychological History: Depression Smoking Status: Former smoker Past Alcohol Use History: None Reported Past Drug Use History: Marijuana - Past Family History Mother History Unknown: Yes Father History Unknown: Yes General Exam - General Exam Comments Initial Comments: This is a well-developed well-nourished awake alert pleasantly confused female Limitations: no limitations General appearance: alert, in no apparent distress Head exam: Present: other (Superficial abrasion seen to the mid forehead with an area approximately 6 cm diameter of erythema no step-off or crepitation no ecchymosis seen) Eye exam: Present: normal appearance, PERRL, EOMI. Absent: scleral icterus, conjunctival injection, periorbital swelling ENT exam: Present: normal exam, mucous membranes moist Neck exam: Present: normal inspection, full ROM, other (Question tenderness on palpation of the paraspinous muscles no spinous process tenderness no step-off or crepitation). Absent: tenderness, meningismus, lymphadenopathy Respiratory exam: Present: normal lung sounds bilaterally. Absent: respiratory distress, wheezes, rales, rhonchi, stridor Cardiovascular Exam: Present: regular rate, normal rhythm, normal heart sounds. Absent: systolic murmur, diastolic murmur, rubs, gallop, clicks GI/Abdominal exam: Present: soft, normal bowel sounds. Absent: distended, tenderness, guarding, rebound, rigid Extremities exam: Present: normal inspection, normal capillary refill, other (Residual right-sided weakness as stated above). Absent: full ROM, tenderness, pedal edema, joint swelling, calf tenderness Back exam: Present: normal inspection Neurological exam: Present: alert, altered, CN II-XII intact, other (Chronic) Psychiatric exam: Present: normal affect, normal mood Skin exam: Present: warm, dry, other (As noted above). Absent: intact, normal color, rash Course Vital Signs 07/24/22 15:36 Temperature 98 F Pulse Rate 50 L Respiratory 18 Rate Blood Pressure 108/71 O2 Sat by Pulse 99 Oximetry Medical Decision Making - Medical Decision Making I did discuss findings with the patient's family patient will be discharged after getting a tetanus shot and be placed on a short course of antibiotics for suspected localized cellulitis of the forehead. 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 - Radiology Data Interpreted by me: Imaging was evaluated by me no acute process or is evidence of encephalomalacia the left temporal region. No evidence of acute bleeding. Disposition Clinical Impression: Forehead abrasion, Cellulitis, Fall, History of CVA (cerebrovascular accident) Disposition: HOME SELF-CARE Condition: Good Instructions (If sedation given, give patient instructions): Abrasion (ED), Cellulitis (ED) Prescriptions: Sulfamethox-Tmp 800-160Mg [Bactrim DS 800-160 mg] 2 each PO Q12HR #28 tab Is patient prescribed a controlled substance at d/c from ED?: No Referrals: Santos Emerson MD [Primary Care Provider] - 1-2 days Decision Date: 07/24/22 Decision Time: 17:10
== END 2022-07-24 17:11 | disposition home or self-care (01) ==
LOC: EC 15:21
DX: S00.81XA Abrasion of other part of head, initial encounter (principal); L03.90 Cellulitis, unspecified; I10 Essential (primary) hypertension; E78.5 Hyperlipidemia, unspecified; F32.A Depression, unspecified; F12.90 Cannabis use, unspecified, uncomplicated; Z87.891 Personal history of nicotine dependence; Z86.73 Personal history of transient ischemic attack (TIA), and cerebral infarction without residual deficits; Z23 Encounter for immunization; Z79.899 Other long term (current) drug therapy; W01.0XXA Fall on same level from slipping, tripping and stumbling without subsequent striking against object, initial encounter
CPT/HCPCS: 70450; 70486; 72125; 90471; 90715; 99283